=== PATIENT | male | born 1960 | race Caucasian/White ===

== ENCOUNTER 2021-07-11 08:59 | Outpatient (CLI) | payer OTHER, SELFPAY ==
--- NOTE | ~2021-07-11 | CT_ITS ---
EXAMINATION:CT lung screening DATE: 07/11/2021 09:20 INDICATION: Personal history of nicotine dependence. Smoker who quit 1 week ago with 38 pack year his tory. TECHNIQUE: Computed tomography (CT) of the chest was performed without intravenous contrast. Automate d exposure control and iterative reconstruction technique were employed. The dose-length product (DLP ) was 258.77 mGy-cm. COMPARISON: None. FINDINGS: There is mild emphysema. There is mild atelectasis in right lower lobe. Calcified lung nodu les and calcified hilar lymph nodes are consistent with old granulomatous disease. There is a 2 mm no dule in left upper lobe. No pleural effusion. The heart size is normal. There are coronary artery kenna cifications. No pericardial effusion. There is bilateral gynecomastia. There is mild thoracic spondyl osis. IMPRESSION: 1. Lung-RADS category 2: Benign appearance or behavior. Continue annual screening with noncontrast lo w-dose chest CT in 12 months. Reviewed, dictated and finalized at location [facility]. IMPRESSION: 1. Lung-RADS category 2: Benign appearance or behavior. Continue annual screeni ng with noncontrast low-dose chest CT in 12 months.
== END 2021-07-11 09:00 | disposition home or self-care (01) ==
LOC: ANHIMG 09:06
PROVIDERS: PCP Internal Medicine; Visit Provider Nurse Practitioner
DX: Z87.891 Personal history of nicotine dependence (principal)
CPT/HCPCS: 71271

== ENCOUNTER 2022-05-21 06:18 | Day surgery (SDC) | payer OTHER, SELFPAY ==
[2022-03-21 08:31] VITALS: BMI 30.2
[2022-05-08 10:34] VITALS: BMI 30.4
--- NOTE | 2022-05-18 14:16 | PM.HPGS ---
History of Present Illness History of Present Illness Consent: Risks, benefits, and alternatives have been discussed and questions answered. Patient agrees to proceed with procedure. Chief complaint: History of polyps Narrative: Jann Hsieh is a 61 year old male referred for colon cancer screening. He has history of polyps Review of Systems Review of Systems: All systems reviewed & are unremarkable except as noted in HPI and below PMFSH Past Medical History Medical History Erectile dysfunction GERD (gastroesophageal reflux disease) HTN (hypertension) Mixed hyperlipidemia Prediabetes Family History Family History Mother Diabetes mellitus Hypertension Father Hypertension Social History Social History Smoking packs per day: 0.5 Smoking cigarettes per day: 10.0 Years smoked: 40 Smoking pack-years: 20.00 Smoking status: Current every day smoker Tobacco type: cigarettes Alcohol intake: current Drinks per week: 12 Alcohol use details: 2-3 times per week Substance use: never Substance use type: does not use Living arrangements: with family Spiritual care concerns: No Meds Home Medications and Allergies Home Medications Medication Instructions Recorded Confirmed Type ascorbic acid (vitamin C) 1,000 mg 1 gm PO DAILY 05/27/19 05/21/22 History tablet multivitamin 1 tablet PO DAILY 05/27/19 05/21/22 History zinc 50 mg tablet 50 mg PO DAILY 05/27/19 05/21/22 History sildenafil 100 mg tablet 100 mg PO DAILY PRN sexual 04/24/21 05/21/22 Rx activity #14 tabs vitamin C 500 mg-multivitamin with 1 tablet PO DAILY 07/03/21 05/21/22 History minerals chewable tablet (Emergen-C) losartan 50 mg-hydrochlorothiazide See Rx Instructions .Route 02/15/22 05/21/22 Rx 12.5 mg tablet .COMPLEX #90 tabs simvastatin 20 mg tablet 20 mg PO DAILY #90 tabs 02/20/22 05/21/22 Rx Allergies Allergy/AdvReac Type Severity Reaction Status Date / Time No Known Allergies Allergy Unverified 05/21/22 07:23 Exam Const: General: alert Orientation/consciousness: patient oriented x3 Resp: Auscultation: clear to auscultation bilaterally Cardio: Rhythm: regular rhythm GI: GI Palp: Yes Soft to palpation and No Tenderness to palpation present (GI) Neuro: General: patient oriented x3 Assessment and Plan Assessment and plan (1) Colon cancer screening: Code(s): Z12.11 - Encounter for screening for malignant neoplasm of colon Status: Acute Assessment and Plan: Colonoscopy with possible biopsy or polypectomy or cautery or injection of substances.
[2022-05-21 07:05] VITALS: BP 150/85; PULSE 72; RESP 16; TEMP 36.7; O2SAT 98
--- NOTE | 2022-05-21 07:17 | P.PNAN_ITS ---
Anes - Initial Pre Proc Eval Procedure: Operation Date: 05/21/22 08:30 Proposed Procedures p Screening Colonoscopy - Kyaw Miller MD Date/Time: 05/21/22 07:17 Surgeon: Kyaw Miller MD Pre Op Diagnosis: History of polyps Patient Data Age: 61 Gender: M Height: 1.83 m Weight: 102 kg Allergies Allergy/AdvReac Type Severity Reaction Status Date / Time No Known Allergies Allergy Unverified 05/21/22 07:23 Home Medications Medication Instructions Recorded Confirmed Type ascorbic acid (vitamin C) 1,000 mg 1 gm PO DAILY 05/27/19 05/21/22 History tablet multivitamin 1 tablet PO DAILY 05/27/19 05/21/22 History zinc 50 mg tablet 50 mg PO DAILY 05/27/19 05/21/22 History sildenafil 100 mg tablet 100 mg PO DAILY PRN sexual 04/24/21 05/21/22 Rx activity #14 tabs vitamin C 500 mg-multivitamin with 1 tablet PO DAILY 07/03/21 05/21/22 History minerals chewable tablet (Emergen-C) losartan 50 mg-hydrochlorothiazide See Rx Instructions .Route 02/15/22 05/21/22 Rx 12.5 mg tablet .COMPLEX #90 tabs simvastatin 20 mg tablet 20 mg PO DAILY #90 tabs 02/20/22 05/21/22 Rx Patient hx anesthesia problems: none Family hx anesthesia problems: none Results Review: All pre-operative results and documents have been reviewed as part of the pre- operative evaluation. [facility] Past Medical History Medical History (Updated 05/21/22 @ 07:18 by Todd Wilson DO) Erectile dysfunction GERD (gastroesophageal reflux disease) HTN (hypertension) Mixed hyperlipidemia Prediabetes Family History Family History Mother Diabetes mellitus Hypertension Father Hypertension Social History Social History (Updated 01/01/22 @ 07:51 by Bethany Finney CMA) Smoking packs per day: 0.5 Smoking cigarettes per day: 10.0 Years smoked: 40 Smoking pack-years: 20.00 Smoking status: Current every day smoker Tobacco type: cigarettes Alcohol intake: current Drinks per week: 12 Alcohol use details: 2-3 times per week Substance use: never Substance use type: does not use Living arrangements: with family Spiritual care concerns: No Anes - Eval Final PreProcedure Day of Procedure 05/21/22 07:17 Patient weight: obese Heart: regular rate and rhythm Lungs: clear to auscultation Airway: Mallampati scale class II and special considerations poor dentition Neurological: alert and oriented Last oral intake: >/= 8 hours ASA classification: III Emergent: no Anesthetic plan: proceed Anesthesia type and monitoring: general GIVS and standard monitoring Results Review: All pre-operative results and documents have been reviewed as part of the pre- operative evaluation. Informed Consent: The patient's anesthetic plan and its attendant risks and benefits were discussed with the patient/family/POA. Questions were solicited and answers provided to the satisfaction of the patient/family/POA.
[2022-05-21] MEDS: LACTATED RINGERS 1,000 ML 150 ML IV CONT (07:28)
[2022-05-21 08:37] VITALS: BP 115/79; PULSE 73; RESP 16; O2SAT 96
[2022-05-21 08:47] VITALS: BP 158/90; PULSE 72; RESP 18; O2SAT 98
[2022-05-21 08:57] VITALS: BP 143/85; RESP 20; O2SAT 99
--- NOTE | 2022-05-21 11:58 | WPDANESPN ---
Anes - Prog Note Post-Op Date/Time: 05/21/22 11:58 Cardiovascular status: normal Respiratory status: normal Airway patency: baseline Mental status: baseline Post-Op hydration status: normal Vital Signs: Last Vital Signs Temp 36.7 C 05/21/22 07:05 Pulse 72 05/21/22 08:47 Resp 20 05/21/22 08:57 BP 143/85 H 05/21/22 08:57 Pulse Ox 99 05/21/22 08:57 O2 Del Method Room Air 05/21/22 08:57 Pain Score (VAS): 0 I/O: Intake & Output 05/20/22 05/21/22 05/21/22 23:59 07:59 15:59 Intake Total 840 Balance 840 Post-procedural complaints: none Patient Feedback: Patient satisfied with anesthetic care. Other Findings: Patient vital signs back to baseline. Patient denies nausea and vomiting. Patient's pain under control. Patient OK for discharge.
== END 2022-05-21 09:26 | disposition home or self-care (01) ==
PROVIDERS: PCP Nurse Practitioner; Visit Provider Internal Medicine Gastroenterology
PROC: 0DJD8ZZ Inspection of Lower Intestinal Tract, Via Natural or Artificial Opening Endoscopic (ICD-10-PCS; CPT 45378; principal; 2022-05-21 08:30)
DX: Z12.11 Encounter for screening for malignant neoplasm of colon (principal)
CPT/HCPCS: 45378